=== PATIENT | male | born 1960 | race Caucasian/White ===

== ENCOUNTER 2016-10-03 18:53 | Emergency (ER) | payer MEDICARE, OTHER ==
[~2016-10-03] VITALS: Ht 185.4 cm; Wt 60.0 kg
[~2016-10-03 18:53] MED LIST: BISA-57; DOCU100C; LACT10SO26
[2016-10-03 18:58] VITALS: Ht 185.4 cm; Wt 60.0 kg
[2016-10-03] MEDS ORDERED: SOD CHLORIDE 0.9% 1,000 ML IV STA (19:02)
[2016-10-03 19:22] LABS: ADD SCAN DIFF NO
[2016-10-03 19:24] LABS: ABNORMAL IP MESSAGE 1; HEMATOCRIT 35.7 % (42.0-52.0); MEAN CORPUSCULAR HEMOGLOBIN 32.3 pg (29.0-33.0); MEAN CORPUSCULAR HGB CONC 33.6 g/dl (32.0-37.0); MEAN CORPUSCULAR VOLUME 96.2 fl (82.0-101.0); MEAN PLATELET VOLUME 9.7 fl (7.4-10.4); PLATELET COUNT 137 10^3/UL (140-415); RED BLOOD COUNT 3.71 10^6/ul (4.70-6.10); RED CELL DISTRIBUTION WIDTH 13.2 % (11.5-14.5); WHITE BLOOD COUNT 12.4 10^3/ul (4.8-10.8)
[2016-10-03 19:37] LABS: ADD UMIC NO; UR ASCORBIC ACID NEGATIVE (NEGATIVE); UR BILIRUBIN (Dip) NEGATIVE (NEGATIVE); UR BLOOD (Dip) NEGATIVE (NEGATIVE); UR CLARITY CLEAR (CLEAR); UR COLOR YELLOW (YELLOW); UR GLUCOSE (Dip) NEGATIVE (NEGATIVE); UR KETONES (Dip) NEGATIVE (NEGATIVE); UR LEUKOCYTE ESTERASE (Dip) NEGATIVE Leu/ul (NEGATIVE); UR NITRITE (Dip) NEGATIVE (NEGATIVE); UR SPECIFIC GRAVITY (Dip) 1.029 (1.003-1.030); UR TOTAL PROTEIN (Dip) NEGATIVE (NEGATIVE); UR UROBILINOGEN (Dip) 1+ mg/dL (NEGATIVE)
[2016-10-03 19:47] LABS: ALBUMIN 3.4 g/dl (3.3-4.9); ALBUMIN/GLOBULIN RATIO 1.09; BILIRUBIN,INDIRECT 0.1 mg/dl (0-1.1); BILIRUBIN,TOTAL 0.1 mg/dl (0.2-1.3); CALCIUM 8.8 mg/dl (8.4-10.2); CREATININE 0.81 mg/dl (0.61-1.24); POTASSIUM 4.1 mmol/L (3.5-5.1); TOTAL PROTEIN 6.5 g/dl (6.1-8.1)
[2016-10-03] MEDS ORDERED: FINA5TAB4 PO (19:55)
[2016-10-03] MEDS ORDERED: OLAN5TAB5 PO (19:56)
[2016-10-03] MEDS ORDERED: LACT10SO5 PO ×2 (19:57→20:09)
[2016-10-03] MEDS ORDERED: DIVA250T12 PO (19:58)
[2016-10-03] MEDS ORDERED: CARB1TAB45 PO (20:00)
--- NOTE | 2016-10-03 20:00 | RADRPT ---
PROCEDURE: XR Chest 1 View. CLINICAL INDICATION: Shortness of breath, weakness. TECHNIQUE: AP view of the chest was obtained. COMPARISON: None. FINDINGS: The cardiomediastinal silhouette is within normal limits. Diffuse mild interstitial prominence is se en in both lungs. No consolidations are identified. No pneumothorax is seen. The osseous structure s are osteopenic, but appear grossly intact. IMPRESSION: Diffuse mild interstitial prominence in both lungs. Interstitial prominence could be chronic. RPTAT: AA .Atif Jhaveri MD, MD Date Time Electronically viewed and signed by .Atif Jhaveri MD, MD on 10/03/2016 19:59 .P/
[2016-10-03] MEDS ORDERED: ROPI0.25 PO (20:01)
[2016-10-03] MEDS ORDERED: ESOM40CA PO (20:02)
[2016-10-03] MEDS ORDERED: FOLI-49 PO (20:03)
[2016-10-03] MEDS ORDERED: LEVO330T PO (20:04)
[2016-10-03] MEDS ORDERED: TAMS0.4C2 PO (20:05)
[2016-10-03] MEDS ORDERED: MIRT15TA PO (20:06)
[2016-10-03 20:10] LABS: EOSINOPHILS # 0.1 10^3/ul (0.0-0.5); LYMPHOCYTES # 6.4 10^3/ul (0.8-2.9); MONOCYTE # 0.9 10^3/ul (0.3-0.9); NEUTROPHIL # 4.1 10^3/ul (1.6-7.5)
--- NOTE | 2016-10-03 20:15 | ERD ---
ER Documentation Chief Complaint Date/Time DATE: 10/03/16 TIME: 20:13 Chief Complaint weakness x 1 month, body aches. hx dementia, lives in assisted living HPI This is a 65-year-old male who presents to the emergency room from his assisted living facility for evaluation of weakness and body aches for 1 months duration. A detailed history is unobtainable from this patient secondary to his severe dementia. According to [facility] notes he has been weak for 1 month and has had difficulty ambulating for 1 month. Upon my evaluation this patient's is afebrile, and hemodynamically stable and nontoxic appearing. ROS All systems reviewed and are negative except as per history of present illness. Medications Home Meds Reported Medications Lactulose* (Lactulose*) 10 Gm/15 Ml Solution, 0 PO QHS, ML TAKE 3 TEASPOONFULS QHS 10/03/16 Mirtazapine* (Remeron*) 15 Mg Tablet, 15 MG PO HS, TAB 10/03/16 Tamsulosin Hcl* (Tamsulosin Hcl*) 0.4 Mg Cap.er.24h, 0.4 MG PO QPM, CAP TAKE SAME TIME EACH DAY 30MIN AFTER MEAL 10/03/16 Levocarnitine* (Levocarnitine*) 330 Mg Tablet, 330 MG PO TID, TAB 10/03/16 Folic Acid* (Folic Acid*) 1 Mg Tablet, 1 MG PO QAM, TAB 10/03/16 Esomeprazole Mag Trihydrate (Nexium) 40 Mg Capsule.dr, 40 MG PO QAM, #30 CAP 10/03/16 Ropinirole Hcl* (Ropinirole Hcl*) 0.25 Mg Tablet, 0.25 MG PO TID, TAB 10/03/16 Carbidopa/Levodopa (CARBIDOPA-LEVO 10-100 MG ODT) 1 Each Tab.rapdis, 1 TAB PO TID, #90 TAB 10/03/16 Divalproex Sodium* (Divalproex ER*) 250 Mg Tab.er.24h, 250 MG PO TID, #30 TAB.SA 10/03/16 Lactulose* (Lactulose*) 10 Gm/15 Ml Solution, 10 GM PO BID Y for NEEDED, ML 10/03/16 Olanzapine* (Zyprexa*) 5 Mg Tablet, 5 MG PO QHS, #30 TAB 10/03/16 Finasteride* (Finasteride*) 5 Mg Tablet, 5 MG PO QHS, TAB 10/03/16 Discontinued Reported Medications Bisacodyl* (Dulcolax*) 5 Mg Tablet. 07/05/12 Lactulose* (Constulose*) 10 G/15 Ml Solution 07/05/12 Docusate Sodium (Col-Rite) 100 Mg Capsule, 100 07/05/12 Allergies Allergies: Coded Allergies: No Known Allergy (Unverified , 10/03/16) PMhx/Soc History of Surgery: No Anesthesia Reaction: No Hx Neurological Disorder: No Hx Respiratory Disorders: No Hx Cardiac Disorders: No Hx Psychiatric Problems: No Hx Miscellaneous Medical Probl: No (SZH, ALZ) Hx Alcohol Use: No Hx Substance Use: No Hx Tobacco Use: No Smoking Status: Never smoker Physical Exam Vitals Vital Signs Date Time Temp Pulse Resp B/P Pulse Ox O2 Delivery O2 Flow Rate FiO2 10/03/16 18:55 97.9 88 20 119/74 100 Physical Exam INITIAL VITAL SIGNS: Reviewed by me GENERAL: The patient is well developed and appropriate for usual state of health in no apparent distress HEENT: Dry mucous membranes, pupils equal, round, and reactive to light. EOMI. There is no scleral icterus. NECK: C-spine is soft and supple, there is no meningismus. There is no cervical lymphadenopathy. LUNGS: Clear to auscultation bilaterally. There are no rales, wheezes or rhonchi. HEART: Regular rate and rhythm, no murmurs, clicks, rubs or gallops. ABDOMEN: Soft, non-tender, non-distended. There are bowel sounds in all four quadrants. No rebound or guarding. EXTREMITIES: There is no peripheral cyanosis or edema. No focal swelling or erythema. NEUROLOGICAL: The patient moves all four extremities with 5/5 strength. Cranial nerves II - XII are intact. Normal gait. Alert and oriented SKIN: There is no apparent rash or petechiae. HEME/LYMPHATIC: There is no evidence of excessive bruising or lymphedema. PSYCHIATRIC: The patient does not appear anxious or depressed. Result Diagram: 10/03/16191910/03/161919 Results 24 hrs Laboratory Tests Test 10/03/16 18:00 10/03/16 19:20 Urine Color YELLOW Urine Clarity CLEAR Urine pH 5.0 Urine Specific [place] 1.029 Urine Ketones NEGATIVEmg/dL Urine Nitrite NEGATIVEmg/dL Urine Bilirubin NEGATIVEmg/dL Urine Urobilinogen 1+mg/dL Urine Leukocyte Esterase NEGATIVELeu/ul Urine Hemoglobin NEGATIVEmg/dL Urine Glucose NEGATIVEmg/dL Urine Total Protein NEGATIVEmg/dl White Blood Count 12.410^3/ul Red Blood Count 3.7110^6/ul Hemoglobin 12.0g/dl Hematocrit 35.7% Mean Corpuscular Volume 96.2fl Mean Corpuscular Hemoglobin 32.3pg Mean Corpuscular Hemoglobin Concent 33.6g/dl Red Cell Distribution Width 13.2% Platelet Count 12232^3/UL Mean Platelet Volume 9.7fl Neutrophils % 33.0% Band Neutrophils % 5.0% Lymphocytes % 52.0% Reactive Lymphocytes % 2.0% Monocytes % 7.0% Eosinophils % 1.0% Neutrophils # 4.110^3/ul Lymphocytes # 6.410^3/ul Monocytes # 0.910^3/ul Eosinophils # 0.110^3/ul Sodium Level 144mmol/L Potassium Level 4.1mmol/L Chloride Level 100mmol/L Carbon Dioxide Level 34mmol/L Anion Gap 14 Blood Urea Nitrogen 25mg/dl Creatinine 0.81mg/dl Glucose Level 114mg/dl Calcium Level 8.8mg/dl Total Bilirubin 0.1mg/dl Direct Bilirubin 0.00mg/dl Indirect Bilirubin 0.1mg/dl Aspartate Amino Transf (AST/SGOT) 28IU/L Alanine Aminotransferase (ALT/SGPT) 36IU/L Alkaline Phosphatase 62IU/L Total Protein 6.5g/dl Albumin 3.4g/dl Globulin 3.10g/dl Albumin/Globulin Ratio 1.09 Lipase 68U/L Current Medications Medications (Trade) Dose Ordered Sig/Reji Route PRN Reason Start Time Stop Time Status Last Admin Dose Admin Sodium Chloride (NS) 1,000 ml @ 1,000 mls/hr Q1H STAT IV 10/03/16 19:02 10/03/16 20:01 DC 10/03/16 19:21 Procedures/MDM EKG: Rate/Rhythm: [Normal Sinus Rhythm] QRS, ST, T-waves: [No changes consistent w/ acute ischemia] Impression: [No evidence of ischemia or arrhythmia] Chest X-ray 1V Interpreted by me: Soft Tissue: No acute abnormalities Bones: No acute abnormalities Mediastinum/Cardiac Silhouette/Lungs: [No acute abnormalities] This 55-year-old male presents to the emergency room for evaluation of generalized weakness for the past month. When I evaluated this patient is nontoxic appearing, he is hemodynamically stable, he was in no acute distress. I did obtain lab work including a urinalysis and EKG and chest x-ray all of which are within normal limits at this time. This patient is not complaining of any pain at this time. He is very pleasant in affect and I given the fact that this patient's symptoms are chronic in nature I do not feel the need for admission at this time as he has nothing acutely abnormal with him. This patient will be discharged back to his nursing facility at this time. Departure Diagnosis: Primary Impression: Generalized weakness Additional Impression: Normocytic anemia Condition: Stable JESSICA BUSH DO Oct 03, 2016 20:15
[2016-10-03 21:15] VITALS: BP 112/55; PULSE 78; RESP 20
== END 2016-10-03 21:24 | disposition home or self-care (01) ==
LOC: E/R 18:53
DX: R53.1 Weakness (principal); D64.9 Anemia, unspecified
CPT/HCPCS: 36415; 71010; 80053; 81003; 83690; 85025; 93005; 99285; J7030